=== PATIENT | male | born 1995 | race American Indian/Alaskan Native ===

== ENCOUNTER 2020-11-15 06:45 | Emergency (ER) | payer BC ==
[2020-11-15] MEDS ORDERED: cephALEXin 500 MG CAP PO ONE (07:20)
[2020-11-15 07:32] VITALS: BP 146/78
--- NOTE | 2020-11-15 07:36 | Event Note ---
Date: 11/15/20 Patient is a 25-year-old -[place] male that comes to the emergency room today for 2 complaints. 1 STD testing, routine, no symptoms 2 recheck of a laceration that had been repaired at another facility that is now draining purulent discharge. Sutures remain intact. They are not to come out for another 7 days. The other facility was out of town. Patient denies any dysuria. He denies testicular pain. He denies any discharge. Patient complaining of finger pain, distal portion of the finger. There is drainage. He denies fever or chills. The pain is throbbing at the distal tip. He is taking nothing prior to arrival to the ER for the pain. He has seen no primary care or the doctor that originally sutured his wounds. Past medical history none Past surgical history none No known allergies No home medications tdap utd Review of systems Finger pain as described above No dysuria, discharge or testicular pain No abdominal pain No nausea vomiting diarrhea or constipation No lesions on the penis All other systems reviewed and negative Exam Alert and oriented x4, no focal deficit S1-S2 Lungs clear to auscultation Abdomen soft nontender no CVA tenderness Patient's right fourth digit noted to have 2 lacerations that have recently been sutured. The proximal is well approximated with no drainage. However, the distal laceration has some purulent discharge. There is minor swelling. Cap refill is rapid. Patient is neurovascularly intact. Patient [facility] However, he did not give it antibiotics. He states that the finger was not fractured. They repaired the wound and sent him home. Medical decision making 1 I have educated the patient that the ER does not do routine STD testing. He will be given a referral 2 there is purulent drainage coming from his most distal laceration. The suture line remains approximated. The patient has no fever tachycardia or hypotension. Patient did have Vaseline on the wound. I have educated him not to use any ointments. Wound was cleaned and REdressed by RN. Given that there is no tension on the suture line I do not feel compelled to open the sutures to allow for drainage. He is draining through the sutures. I told him that they may begin to pull and if they do that he should follow-up with the primary care doctor that I would give him a referral to. Patient is neurovascularly intact. Patient was medicated with Keflex in the emergency room. Patient is being discharged home with discharge instructions including medications, follow-up, wound care and signs and symptoms to monitor for. He is also been given an referral to primary care for his STD routine testing. Patient verbalizes understanding of the plan of care. On discharge patient is ambulatory, nontoxic and [id number] Vital Signs 11/15/20 11/15/20 11/15/20 06:59 07:30 07:32 Temperature 98.6 F 98.4 F 98.4 F Pulse Rate 54 L 60 60 Respiratory 19 16 16 Rate Blood Pressure 148/96 Blood Pressure 146/78 146/78 [Left] O2 Sat by Pulse 98 100 100 Oximetry See discharge section in the EMR I am currently unable to access ER templates. Dr. Lindsey aware; thus why the current event note is being used for an ER encounter.
[2020-11-15] MEDS ORDERED: SODIUM CHLORIDE 0.9% IRR 500 ML BOTTLE IR SCH (08:00)
== END 2020-11-15 07:42 | disposition home or self-care (01) ==
LOC: ED 06:45
DX: S61.215D Laceration without foreign body of left ring finger without damage to nail, subsequent encounter (principal); X58.XXXD Exposure to other specified factors, subsequent encounter
CPT/HCPCS: 99282

== ENCOUNTER 2020-11-24 12:39 | Emergency (ER) | payer BC ==
[2020-11-24 14:17] VITALS: BP 153/91
== END 2020-11-24 16:45 | disposition left against medical advice (07) ==
LOC: ED 12:39
DX: Z00.8 Encounter for other general examination (principal); Z53.21 Procedure and treatment not carried out due to patient leaving prior to being seen by health care provider

== ENCOUNTER 2020-11-26 11:04 | Emergency (ER) | payer BC ==
[2020-11-26 12:50] VITALS: BP 142/86
--- NOTE | 2020-11-26 12:54 | Emergency Department Report ---
ED General Adult HPI - General Chief complaint: Laceration/Recheck/Suture Stated complaint: STITCH REMOVAL Time Seen by Provider: 11/26/20 12:49 Source: patient Mode of arrival: Ambulatory Limitations: No Limitations - History of Present Illness Initial comments: 25 yo AA M pt presents for suture removal today. Pt states he had the sutures placed in [place] right ring [place] state [place]. He admits to increased pain, but denies any numbness or difficulty moving his finger/hand, fever/chills/sweats, or wound drainage. He states he did not take the antibiotic that were prescribed. No past medical hx per pt. Severity scale (0 -10): 7 Consistency: constant Worsens with: movement - Related Data Previous Rx's Medication Instructions Recorded Last Taken Type cephALEXin [Keflex] 500 mg PO Q12HR #20 cap 11/15/20 Unknown Rx Ibuprofen [Motrin 800 MG tab] 800 mg PO Q8HR PRN #20 tablet 11/26/20 Unknown Rx Mupirocin [Bactroban 2% OINT] 1 applic TP TID 10 Days #1 tube 11/26/20 Unknown Rx Sulfamethoxazole/Trimethoprim 1 each PO BID 10 Days #20 tablet 11/26/20 Unknown Rx [Bactrim DS TAB] Allergies Allergy/AdvReac Type Severity Reaction Status Date / Time No Known Allergies Allergy Verified 11/24/20 14:16 ED Review of Systems ROS: Stated complaint: STITCH REMOVAL Other details as noted in HPI Constitutional: denies: diaphoresis, fever, malaise Musculoskeletal: denies: joint swelling, arthralgia Skin: change in color, pruritus Neurological: denies: numbness, paresthesias ED Past Medical Hx - Past Medical History Previous Medical History?: Yes Hx Hypertension: Yes Additional medical history: Stitches to left ring finger - Surgical History Past Surgical History?: No - Medications Home Medications: Home Medications Medication Instructions Recorded Confirmed Last Taken Type cephALEXin [Keflex] 500 mg PO Q12HR #20 cap 11/15/20 Unknown Rx Ibuprofen [Motrin 800 MG tab] 800 mg PO Q8HR PRN #20 tablet 11/26/20 Unknown Rx Mupirocin [Bactroban 2% OINT] 1 applic TP TID 10 Days #1 tube 11/26/20 Unknown Rx Sulfamethoxazole/Trimethoprim 1 each PO BID 10 Days #20 tablet 11/26/20 Unknown Rx [Bactrim DS TAB] ED Physical Exam - General Limitations: No Limitations General appearance: alert, in no apparent distress - Head Head exam: Present: atraumatic, normocephalic - Eye Eye exam: Present: normal appearance - Neck Neck exam: Present: normal inspection - Respiratory Respiratory exam: Absent: respiratory distress - Cardiovascular Cardiovascular Exam: Present: regular rate, normal rhythm - Neurological Exam Neurological exam: Present: alert, oriented X3 - Psychiatric Psychiatric exam: Present: normal affect, normal mood - Skin Skin exam: Present: warm, dry, other (2 sutures noted to distal right ring finger with surrounding swelling and tenderness to palpation; no obvious drainage noted; no cellulitic changes noted; 3 simple sutures noted to proximal palmar portion of same finger without tenderness or redness or wound dehiscence). Absent: rash ED Course Vital Signs 11/26/20 12:49 Temperature 98.6 F Pulse Rate 59 L Respiratory 18 Rate Blood Pressure 142/86 [Right] O2 Sat by Pulse 100 Oximetry - Procedure Description Procedures done: 5 simple sutures removed from right ring finger; no bleeding occurred; patient tolerated procedure well without any immediate complications ED Medical Decision Making - Medical Decision Making 25 yo AA M pt presents for suture removal today. Pt states he had the sutures placed in his right ring [place] state [place]. He admits to increased pain, but denies any numbness or difficulty moving his finger/hand, fever/chills/sweats, or wound drainage. He states he did not take the antibiotic that were prescribed. No past medical hx per pt. Infected wound noted on exam. 5 sutures were removed. We will treat infection with mupirocin and Bactrim. Patient to follow-up with primary care for wound recheck in 3 days. Patient states understanding of his diagnosis and plan of care and denies any further questions at this time peer discussed signs and symptoms that should prompt immediate return to the emergency department in detail patient verbalized understanding. Critical care attestation.: If time is entered above; I have spent that time in minutes in the direct care of this critically ill patient, excluding procedure time. ED Disposition Clinical Impression: Infected wound Disposition: TO HOME OR SELFCARE Is pt being admited?: No Condition: Stable Instructions: Wound Infection Prescriptions: Sulfamethoxazole/Trimethoprim [Bactrim DS TAB] 1 each PO BID 10 Days #20 tablet Mupirocin [Bactroban 2% OINT] 1 applic TP TID 10 Days #1 tube Ibuprofen [Motrin 800 MG tab] 800 mg PO Q8HR PRN #20 tablet PRN Reason: pain Referrals: [facility] [Provider Group] - 3-5 Days
== END 2020-11-26 13:14 | disposition home or self-care (01) ==
LOC: ED 11:04
DX: S61.214D Laceration without foreign body of right ring finger without damage to nail, subsequent encounter (principal); I10 Essential (primary) hypertension; T81.49XA Infection following a procedure, other surgical site, initial encounter; Y83.8 Other surgical procedures as the cause of abnormal reaction of the patient, or of later complication, without mention of misadventure at the time of the procedure; Y92.89 Other specified places as the place of occurrence of the external cause
CPT/HCPCS: 99282

== ENCOUNTER 2021-02-28 11:45 | Emergency (ER) | payer BC ==
--- NOTE | 2021-02-28 12:34 | Emergency Department Report ---
ED Male HPI - General Chief complaint: Urogenital-Male Stated complaint: BURN URINE/HAND PAIN Time Seen by Provider: 02/28/21 12:19 Source: patient Mode of arrival: Ambulatory Limitations: No Limitations - History of Present Illness Initial comments: Patient presents with multiple complaints. He reports having dysuria associated with a penile discharge. He states that this has been going on for 2 weeks. He did have unprotected intercourse. There is no lesion or sore that he has noted. He has had no fevers or chills. There is no abdominal pain or back pain associated with this. He does not know what he may have. He has never had an STI before. Patient came in for evaluation and treatment because of this. There is no testicular pain. He is right-hand dominant. He states that he had a prior laceration here. He is now developed limited range of motion of the right ring finger. He cannot flex his hand completely. Again, this has been ongoing in nature. There is no history of new trauma. Again he is right-hand dominant. - Related Data Previous Rx's Medication Instructions Recorded Last Taken Type Ibuprofen [Motrin 800 MG tab] 800 mg PO Q8HR PRN #20 tablet 11/26/20 Unknown Rx Mupirocin [Bactroban 2% OINT] 1 applic TP TID 10 Days #1 tube 11/26/20 Unknown Rx Doxycycline Monohydrate 100 mg PO BID #20 capsule 02/28/21 Unknown Rx [Doxycycline Monohydrate CAP] Allergies Allergy/AdvReac Type Severity Reaction Status Date / Time No Known Allergies Allergy Verified 11/24/20 14:16 ED Review of Systems ROS: Stated complaint: BURN URINE/HAND PAIN Other details as noted in HPI Comment: All other systems reviewed and negative Constitutional: denies: fever Eyes: denies: eye pain ENT: denies: throat pain Respiratory: denies: cough Cardiovascular: denies: chest pain Endocrine: denies: unexplained weight loss Gastrointestinal: denies: as per HPI Genitourinary: as per HPI Musculoskeletal: as per HPI Skin: denies: rash Neurological: denies: headache Hematological/Lymphatic: denies: easy bruising ED Past Medical Hx - Past Medical History Hx Hypertension: Yes Additional medical history: Stitches to left ring finger - Family History Family history: hypertension - Social History Smoking Status: Never Smoker - Medications Home Medications: Home Medications Medication Instructions Recorded Confirmed Last Taken Type Ibuprofen [Motrin 800 MG tab] 800 mg PO Q8HR PRN #20 tablet 11/26/20 Unknown Rx Mupirocin [Bactroban 2% OINT] 1 applic TP TID 10 Days #1 tube 11/26/20 Unknown Rx Doxycycline Monohydrate 100 mg PO BID #20 capsule 02/28/21 Unknown Rx [Doxycycline Monohydrate CAP] ED Physical Exam - General Limitations: No Limitations, Other (Pulse ox noted and normal) General appearance: alert, in no apparent distress - Head Head exam: Present: atraumatic, normocephalic - Eye Eye exam: Present: normal appearance, EOMI. Absent: scleral icterus - ENT ENT exam: Present: mucous membranes moist, normal external ear exam - Neck Neck exam: Present: normal inspection. Absent: meningismus - Respiratory Respiratory exam: Present: normal lung sounds bilaterally. Absent: respiratory distress - Cardiovascular Cardiovascular Exam: Present: regular rate, normal rhythm - GI/Abdominal GI/Abdominal exam: Present: soft. Absent: distended, tenderness - exam: Present: other (Declined by patient) - Extremities Exam Extremities exam: Present: normal capillary refill, other (Limited flexion over the right ring finger consistent with a functional tendon injury) - Back Exam Back exam: Absent: CVA tenderness (R), CVA tenderness (L) - Neurological Exam Neurological exam: Present: alert, oriented X3, normal gait - Psychiatric Psychiatric exam: Present: normal affect, normal mood - Skin Skin exam: Present: warm, dry ED Course - Reevaluation(s) Reevaluation #1: 02/28/21 12:35 Patient was treated and discharged ED Medical Decision Making - Medical Decision Making Patient presented with symptoms consistent with a sexually transmitted infection. Was treated empirically. He did not have any lesion reported that would have suggested syphilis or herpes. He did not have any penile pain otherwise. He also reported a hand injury that was remote with apparent functional tendon deficit. He was referred to orthopedic surgery for ongoing management and follow-up. We did have discussion about sexually-transmitted infections. There is no history of back pain and he has no CVA tenderness that would suggest pyelonephritis. Critical Care Time: No Critical care attestation.: If time is entered above; I have spent that time in minutes in the direct care of this critically ill patient, excluding procedure time. ED Disposition Clinical Impression: Urethritis, Tendon dysfunction Disposition: HOME / SELF CARE / HOMELESS Is pt being admited?: No Condition: Stable Additional Instructions: Avoid unprotected intercourse. Do not have intercourse until your symptoms resolve. Notify your partners of the need for evaluation and treatment. Drink plenty of water. Take all of the antibiotics. Follow-up with a hand surgeon as directed. Prescriptions: Doxycycline Monohydrate [Doxycycline Monohydrate CAP] 100 mg PO BID #20 capsule Referrals: [facility] [Referring] - 3-5 Days EZIO HILLMAN MD [Staff Physician] - 3-5 Days KIAN HOGUE MD [Staff Physician] - 3-5 Days Forms: STI Treatment and Prevention
[2021-02-28] MEDS ORDERED: LIDOCAINE-MPF (1%) 10 MG/1 ML VIAL 5 ML INFILTRATI ONE (12:35)
== END 2021-02-28 13:11 | disposition home or self-care (01) ==
LOC: ED 11:45
DX: N34.2 Other urethritis (principal); M67.90 Unspecified disorder of synovium and tendon, unspecified site; I10 Essential (primary) hypertension; Z79.899 Other long term (current) drug therapy
CPT/HCPCS: 96372; 99281; J0696

== ENCOUNTER 2021-12-01 09:41 | Emergency (ER) | payer BC ==
--- NOTE | 2021-12-01 12:59 | Emergency Department Report ---
ED General Adult HPI - General Chief complaint: Urogenital-Male Stated complaint: IRRITATION WHEN USING THE RESTROOM Time Seen by Provider: 12/01/21 12:52 Source: patient Mode of arrival: Ambulatory Limitations: No Limitations - History of Present Illness Initial comments: Is a 26-year-old male who presents for dysuria frequency and urgency x3 days. Patient denies fevers or chills. Symptoms are exacerbated by voiding. As are relieved by nothing tried. No nausea no vomiting. Patient denies penile discharge. There is no hematuria. Patient denies history of renal stones there is no CVA tenderness. - Related Data Previous Rx's Medication Instructions Recorded Last Taken Type Ibuprofen [Motrin 800 MG tab] 800 mg PO Q8HR PRN #20 tablet 11/26/20 Unknown Rx Mupirocin [Bactroban 2% OINT] 1 applic TP TID 10 Days #1 tube 11/26/20 Unknown Rx Doxycycline Monohydrate 100 mg PO BID #20 capsule 02/28/21 Unknown Rx [Doxycycline Monohydrate CAP] Doxycycline Monohydrate 100 mg PO BID 7 Days #14 tab 12/01/21 Unknown Rx Allergies Allergy/AdvReac Type Severity Reaction Status Date / Time No Known Allergies Allergy Verified 12/01/21 10:00 ED Review of Systems ROS: Stated complaint: IRRITATION WHEN USING THE RESTROOM Other details as noted in HPI Constitutional: denies: chills, fever Eyes: denies: eye pain, eye discharge, vision change ENT: denies: ear pain, throat pain Respiratory: denies: cough, shortness of breath, wheezing Cardiovascular: denies: chest pain, palpitations Endocrine: no symptoms reported Gastrointestinal: denies: abdominal pain, nausea, diarrhea Genitourinary: urgency, dysuria, frequency. denies: hematuria, discharge, testicular pain, testicular mass Musculoskeletal: denies: back pain, joint swelling, arthralgia Skin: denies: rash, lesions Neurological: denies: headache, weakness, paresthesias, vertigo Psychiatric: denies: anxiety, depression Hematological/Lymphatic: denies: easy bleeding, easy bruising ED Past Medical Hx - Past Medical History Hx Hypertension: Yes Additional medical history: Stitches to left ring finger - Social History Smoking Status: Never Smoker - Medications Home Medications: Home Medications Medication Instructions Recorded Confirmed Last Taken Type Ibuprofen [Motrin 800 MG tab] 800 mg PO Q8HR PRN #20 tablet 11/26/20 Unknown Rx Mupirocin [Bactroban 2% OINT] 1 applic TP TID 10 Days #1 tube 11/26/20 Unknown Rx Doxycycline Monohydrate 100 mg PO BID #20 capsule 02/28/21 Unknown Rx [Doxycycline Monohydrate CAP] Doxycycline Monohydrate 100 mg PO BID 7 Days #14 tab 12/01/21 Unknown Rx ED Physical Exam - General Limitations: No Limitations General appearance: alert, in no apparent distress - Head Head exam: Present: normocephalic, normal inspection - Eye Eye exam: Present: EOMI Pupils: Present: normal accommodation - ENT ENT exam: Present: mucous membranes moist - Neck Neck exam: Present: normal inspection, full ROM. Absent: tenderness - Respiratory Respiratory exam: Present: normal lung sounds bilaterally. Absent: respiratory distress - Cardiovascular Cardiovascular Exam: Present: regular rate, normal rhythm, normal heart sounds. Absent: systolic murmur, diastolic murmur, rubs, gallop - GI/Abdominal GI/Abdominal exam: Present: soft, normal bowel sounds. Absent: distended, tenderness, guarding, rebound, rigid - Rectal Rectal exam: Present: deferred - Extremities Exam Extremities exam: Present: normal inspection, full ROM, normal capillary refill. Absent: tenderness - Back Exam Back exam: Present: normal inspection, full ROM. Absent: CVA tenderness (R), CVA tenderness (L) - Neurological Exam Neurological exam: Present: alert, oriented X3 - Psychiatric Psychiatric exam: Present: normal affect, normal mood - Skin Skin exam: Present: warm, dry, intact, normal color. Absent: rash ED Course Vital Signs 12/01/21 09:58 Temperature 98.6 F Pulse Rate 54 L Respiratory 18 Rate Blood Pressure 143/92 [Left] O2 Sat by Pulse 99 Oximetry ED Medical Decision Making - Medical Decision Making Plan treat for dysuria, DC to home with antibiotics. Patient will follow-up with health department for HIV and HSVscreening. He verbalized agreement understanding discharge plan patient DC'd home in stable condition at this time. Critical care attestation.: If time is entered above; I have spent that time in minutes in the direct care of this critically ill patient, excluding procedure time. ED Disposition Clinical Impression: Dysuria Disposition: HOME / SELF CARE / HOMELESS Is pt being admited?: No Does the pt Need Aspirin: No Condition: Stable Instructions: Dysuria Additional Instructions: Take medication as prescribed. Follow-up with health department for HSV HIV screening. Return to emergency department should symptoms worsen. Prescriptions: Doxycycline Monohydrate 100 mg PO BID 7 Days #14 tab Referrals: [facility] [Outside] - 3-5 Days Forms: Work/School Release Form(ED) Time of Disposition: 13:01
[2021-12-01 13:18] VITALS: BP 138/86
== END 2021-12-01 13:18 | disposition home or self-care (01) ==
LOC: ED 09:41
DX: R30.0 Dysuria (principal); I10 Essential (primary) hypertension
CPT/HCPCS: 99282

== ENCOUNTER 2021-12-27 08:32 | Emergency (ER) | payer BC | END 2021-12-28 02:53 | disposition left against medical advice (07) | LOC: ED 08:32 | DX: R30.9 Painful micturition, unspecified (principal); Z53.21 Procedure and treatment not carried out due to patient leaving prior to being seen by health care provider ==

== ENCOUNTER 2022-01-20 20:24 | Emergency (ER) | payer BC | END 2022-01-20 23:07 | disposition left against medical advice (07) | LOC: ED 20:24 | DX: M54.9 Dorsalgia, unspecified (principal); Z53.21 Procedure and treatment not carried out due to patient leaving prior to being seen by health care provider; W22.8XXA Striking against or struck by other objects, initial encounter; Y93.89 Activity, other specified; Y92.89 Other specified places as the place of occurrence of the external cause; Y99.8 Other external cause status ==